=== PATIENT | female | born 1990 | race Caucasian/White ===

== ENCOUNTER 2017-06-05 06:16 | Observation (INO) | payer OTHER ==
[2017-06-05] MEDS ORDERED: LR 1,000 ML IV ONE (07:00)
[2017-06-05] MEDS ORDERED: LIDO/EPI 1% **for epidural** 30 ML SDV ONE (07:28)
[2017-06-05] MEDS ORDERED: BACITRACIN ZINC 14.2 GM OINTTUBE TP ONE (07:28)
[2017-06-05] MEDS ORDERED: LIDOCAINE 1% 300 MG/30 ML SDV ONE (07:29)
[2017-06-05] MEDS ORDERED: DEXAMETHASONE 4 MG/ML VIAL IVP ONE (07:31)
[2017-06-05] MEDS ORDERED: ceFAZolin 2 GM/SWFI 2 GM/20 ML SYR IVP ONE (07:31)
[2017-06-05] MEDS ORDERED: SCOPOLAMINE HYDROBROMIDE 1 MG/3 DAYS PATCH TD ONE (07:34)
--- NOTE | 2017-06-05 07:35 | PDHPUP ---
History & Physical Update H&P update statement: This history and physical update is based on an assessment of the patient which was completed after admission or registration (within 24 hours), but prior to the surgery/procedure.
[2017-06-05] MEDS ORDERED: fentaNYL 100 MCG/2 ML INJ ONE ×3 (07:41→10:37)
[2017-06-05] MEDS ORDERED: PROPOFOL/EMULSION 500 MG/50 ML BOTTLE IV ONE ×2 (07:41→08:33)
[2017-06-05] MEDS ORDERED: LIDOCAINE 2% 5 ML SDV ONE (08:09)
[2017-06-05] MEDS ORDERED: RANITIDINE 50 MG/2 ML VIAL ONE (08:09)
[2017-06-05] MEDS ORDERED: ONDANSETRON 4 MG/2 ML VIAL ONE (08:09)
[2017-06-05] MEDS ORDERED: METOCLOPRAMIDE 10 MG/2 ML VIAL ONE (08:09)
[2017-06-05] MEDS ORDERED: DEXAMETHASONE 4 MG/ML VIAL ONE (08:09)
[2017-06-05] MEDS ORDERED: SUGAMMADEX SODIUM 200 MG/2 ML VIAL IVP ONE (08:09)
[2017-06-05] MEDS ORDERED: ROCURONIUM 50 MG/5 ML VIAL ONE (08:09)
[2017-06-05] MEDS ORDERED: DEXMEDETOMIDINE/NS 4MCG/ML 50 ML BTL IV ONE (08:35)
--- NOTE | 2017-06-05 08:42 | PDANEPAE ---
ANE Past Medical History - Cardiovascular History Hx Hypertension: No Hx Arrhythmias: No Hx Chest Pain: No Hx Coronary Artery / Peripheral Vascular Disease: No Hx CHF / Valvular Disease: No Hx Palpitations: No Cardiovascular History Comment: Factor V Leiden- dx over 5 yrs ago. 05-16-17 Appt w/hematol- Dr grayson Hay. - Pulmonary History Hx COPD: No Hx Asthma/Reactive Airway Disease: No Hx Recent Upper Respiratory Infection: No Hx Oxygen in Use at Home: No Hx Sleep Apnea: No Sleep Apnea Screening Result - Last Documented: Negative - Neurologic History Hx Cerebrovascular Accident: No Hx Seizures: No Hx Dementia: No - Endocrine History Hx Diabetes: No - Renal History Hx Renal Disorders: No - Liver History Hx Hepatic Disorders: No - Neurological & Psychiatric Hx Hx Neurological and Psychiatric Disorders: No - Cancer History Hx Cancer: No - Congenital Disorder History Hx Congenital Disorders: No - GI History Hx Gastrointestinal Disorders: Yes Gastrointestinal History Comment: dairy and gluten-free diet;. heartburn - Other Health History Other Health History: Mass inside parotid gland-Left. uses Differin for acne - Chronic Pain History Chronic Pain: No - Surgical History Prior Surgeries: wisdom teeth extraction w/sedation ANE Review of Systems Review of Systems: - Exercise capacity METS (RN): 5 METS ANE Patient History - Allergies Allergies/Adverse Reactions: gluten Allergy (Verified 06/05/17 06:44) Unknown Milk Containing Products [dairy] Allergy (Verified 06/05/17 06:44) Unknown - Home Medications Home Medications: Adapalene [Differin gel] 1 mauri TP HS 05/06/17 [Last Taken 06/04/17] Multivitamins [Multivitamin (*)] 1 each PO DAILY 05/06/17 [Last Taken 06/04/17] Ranitidine HCl [Zantac 75] 75 mg PO DAILY PRN 05/06/17 [Last Taken 05/29/17] - NPO status NPO Since - Liquids (Date): 06/04/17 NPO Since - Liquids (Time): 21:00 NPO Since - Solids (Date): 06/04/17 NPO Since - Solids (Time): 21:00 - Smoking Hx Smoking Status: Never smoked ANE Labs/Vital Signs - Vital Signs Blood Pressure: 125/88 Heart Rate: 99 Respiratory Rate: 16 O2 Sat (%): 98 Height: 160.02 cm Weight: 49.895 kg ANE Physical Exam - Airway Neck exam: FROM Mallampati Score: Class 1 Mouth exam: normal dental/mouth exam - Pulmonary Pulmonary: no respiratory distress, no rales or rhonchi, clear to auscultation - Cardiovascular Cardiovascular: regular rate and rhythym, no murmur, rub, or gallop - ASA Status ASA Status: II ANE Anesthesia Plan Anesthesia Plan: general endotracheal anesthesia Total IV Anesthesia: Yes
[2017-06-05] MEDS ORDERED: NALOXONE HCL 0.4 MG/ML INJ IVP PRN (08:47)
[2017-06-05] MEDS ORDERED: ACETAMINOPHEN 500 MG TAB PO PRN (08:54)
[2017-06-05] MEDS ORDERED: HYDROCODONE/APAP 5/325 TAB PO PRN (08:54)
[2017-06-05] MEDS ORDERED: METOCLOPRAMIDE 10 MG/2 ML VIAL IVP PRN (08:54)
[2017-06-05] MEDS ORDERED: DIAZEPAM 10 MG/2 ML SYR IVP PRN (08:54)
[2017-06-05] MEDS ORDERED: ONDANSETRON 4 MG/2 ML VIAL IVP PRN ×2 (08:54→09:52)
[2017-06-05] MEDS ORDERED: OXYCODONE/APAP 5/325 TAB PO PRN ×2 (08:54→09:52)
[2017-06-05] MEDS ORDERED: ALBUTEROL 3 ML DEYVIAL IH PRN (08:54)
[2017-06-05] MEDS ORDERED: LR 500 ML IV PRN (08:54)
[2017-06-05] MEDS ORDERED: PROMETHAZINE HCL 25 MG/ML INJ IVP PRN (08:54)
[2017-06-05] MEDS ORDERED: MEPERIDINE 25 MG/ML SYR IVP PRN (08:54)
[2017-06-05] MEDS ORDERED: fentaNYL 100 MCG/2 ML INJ IVP PRN (08:54)
[2017-06-05] MEDS ORDERED: DEXAMETHASONE 4 MG/ML VIAL IVP PRN (08:54)
[2017-06-05] MEDS ORDERED: HYDROCOD/APAP 7.5/325 IN 15ML UDCUP PO PRN (09:52)
--- NOTE | 2017-06-05 09:52 | POSTOPPROG ---
Post Op Note Date of Operation: 06/05/17 Surgeon: Ca Gorman Ware[employer] Examiner: Dr Bruce Cameron Anesthesiologist: Mohini Anesthesia: GET(General Endotracheal) Pre-op Diagnosis: left parotid mass Post-op Diagnosis: same Procedure: left partotidectomy Findings: left parotid mass Inf/Abcess present in the surg proc area at time of surgery?: No Depth: Deep Incisional (Fascial) EBL: 50-100 Total fluids administered: 500 Complications: none Drains: Hemovac
[2017-06-05] MEDS ORDERED: D5W 1/2 NS W/ 20 KCl/L 1,000 ML IV SCH (10:00)
--- NOTE | 2017-06-05 10:46 | POSTANESTH ---
Post Anesthetic Evaluation Cardiovascular Status: Normal, Stable Respiratory Status: Normal, Stable Level of Consciousness/Mental Status: Can Participate in Eval, Mildly Sleepy, Arousable Pain Control: Adequate, Prn Tx Ordered Nausea/Vomiting Control: Adequate, Prn Tx Ordered Complications Possibly Related to Anesthesia: None Noted
--- NOTE | 2017-06-05 13:48 | GOP ---
[f rep st] OPERATIVE REPORT DATE OF OPERATION: 06/05/2017 SURGEON: Jerry Gorman MD [employer] MACHINE OPERATOR: Bruce Cameron MD ANESTHESIA: General endotracheal. PREOPERATIVE DIAGNOSIS: Left parotid mass. POSTOPERATIVE DIAGNOSIS: Left parotid mass. PROCEDURE PERFORMED: Left superficial parotidectomy with facial nerve dissection and preservation. FINDINGS: Left parotid mass widely dissected with facial nerve dissection and preservation. ESTIMATED BLOOD LOSS: 50 mL. DESCRIPTION OF PROCEDURE: Patient was placed on the operating table in supine position. After induction of adequate general endotracheal anesthesia, a shoulder roll was placed beneath the shoulders to extend the neck. The patient' s head was turned toward the right exposing the entire left side of the face. The entire left face was then prepped and draped in the standard manner for parotidectomy. Prior to draping, infiltration of the proposed incision site was performed utilizing 1% lidocaine with 1:200,000 parts epinephrine. Once the sterile prep and drape had been completed, an incision was then created passing in the preauricular region superiorly, then passing posterior to the tragus and then anterior to the lobule and then passing in a curvilinear manner inferior to the auricle. The incision was then carried down through the subcutaneous tissues. A flap was then elevated anteriorly in a plane just superficial to the SMAS. Dissection was then performed reflecting the parotid tissue off the sternocleidomastoid. Further dissection was then performed in the preauricular region widely exposing the normal course of the facial nerve. Once the styloid process had been reached during this dissection, blunt and sharp dissection was performed and hemostasis was obtained utilizing the bipolar electrocautery. Once the styloid had been reached, the stimulator was used to identify the facial nerve which then was formally identified and dissected free of parotid tissue. Dissection then proceeded from proximally to distally. The pes anserinus was then encountered. The parotid tissue overlying the facial nerve was treated with the bipolar electrocautery and then sharply divided. It was noted that the nerve branched into a superior and inferior branch. The inferior branch passed well inferior to the mass. Further dissection of the inferior branches revealed that as they passed further cephalad they passed deep to the parotid mass. The parotid tissue overlying the facial nerve branches was treated with the bipolar electrocautery and then sharply divided. The superior branches were then dissected from proximal to distal. Again, throughout this dissection, the parotid tissues were treated with bipolar electrocautery and then sharply divided. Sequential dissection of the superior branches was performed reflecting the parotid tissue including the mass laterally off the nerve. After the mass had been dissected, taking a wide margin of normal-appearing parotid tissue,the surrounding the facial nerve branches underlying were dissected and preserved. The parotid mass, with a wide margin of normal appearing parotid tissue was then delivered. The wound was then irrigated with warm saline. A few small bleeders were treated with the bipolar electrocautery. Stimulation of the nerve at 0.5 milliamps was performed. Excellent movement of all facial musculature occurred. At this point, a 10- Dominican Clint-Fuentes drain was passed inferior to the lobule into the neck, it was sutured into place with a single 3-0 silk suture. The skin flap was then placed into it's original position overlying the parotid bed and a deep layer closure of the wound was then performed utilizing interrupted 3-0 Vicryl sutures. The skin in the post tragal region was closed with 6-0 rapid absorbing gut as was the skin in the superior aspect of the preauricular wound. The skin inferior to the tragus and in the postauricular region was closed with a 5-0 Prolene placed in a simple fashion. The postauricular portion was closed with a running locked 5-0 Prolene suture. At this point, the wound was cleansed and bacitracin was applied. A sterile pressure dressing was then applied. The patient was transferred to postanesthesia recovery in stable condition. FLUIDS REPLACED: 500 mL. COMPLICATIONS: None. /[id number]/MODL MTDD
--- NOTE | 2017-06-05 17:20 | SOAPPROG ---
SOAP Progress Note Assessment/Plan: Assessment/P 26 year old female s/p left parotidectomy for parotid mass by Dr. Gorman . She was admitted for observation. She is doing well. Pain controlled, no issues swallowing/breathing. Vital signs stable. Good facial movement, KEM drain minimal. Plans for discharge tomorrow. Objective: Vital Signs Temp Pulse Resp BP Pulse Ox 36.6 C 65 20 101/68 100 06/05/17 16:25 06/05/17 16:25 06/05/17 16:25 06/05/17 16:25 06/05/17 16:25 06/04/17 06/05/17 06/06/17 05:59 05:59 05:59 Intake Total 1550 Output Total 10 Balance 1540 ICD10 Worksheet Patient Problems: Problems Problem Status Onset Parotid mass Acute - ICD10 Problem Qualifiers (1) Parotid mass
[2017-06-05 19:27] VITALS: RESP 16
[2017-06-05 23:20] VITALS: O2SAT 97
[2017-06-06 05:04] VITALS: TEMP 98.2
[2017-06-06 07:29] VITALS: BP 109/68; PULSE 60
--- NOTE | 2017-06-06 11:01 | PDDCSUM ---
Discharge Summary Discharge Summary: Subjective: This 26 year old female is POD #1 s/p left parotidectomy for left parotid mass. She was admitted for observation on 06/05/17. She is doing well. Denies pain, eating and drinking well. Objective: Vital signs stable. KEM drain 35 mL total. She is alert, oriented. Breathing well. Facial nerve intact. Left parotidectomy incision clean, dry, intact. Minimal swelling, no erythema. Assesment/Plan: 26 year old female is POD #1 s/p left parotidectomy for left parotid mass. Doing well. Her KEM drain was removed, dressing replaced. She will remove dressing tomorrow. Plans for discharge with follow up in 1 week for suture removal in clinic.
--- NOTE | 2017-06-06 17:56 | ASDISCHSUM ---
Discharge Information Plan Status:Home with No Needs Medically Cleared to Leave: Discharge Date:06/06/2017 11:25 AM CM D/C Disposition:Home, Routine, Self-Care ADT D/C Disposition:Home, Routine, Self-Care Projected Discharge Date:06/06/2017 11:25 AM Transportation at D/C: Discharge Delay Reason: Follow-Up Date:06/06/2017 11:25 AM Discharge Slot: Final Diagnosis: Placement Information Patient Contact Information Contact Name:ANDCHRISTADEBBY Relationship:Father Address: Work Phone: City: [facility] Phone: State/Zip Code: Email: Financial Information Financial Class:HMO and PPO Plans Primary Plan Desc:[employer] Primary Plan Number:[id number] Secondary Plan Desc: Secondary Plan Number: Assessment Information Intervention Information
== END 2017-06-06 11:25 | disposition home or self-care (01) ==
LOC: F3E 06:16
PROVIDERS: ADMIT Otolaryngology; ATTEND Otolaryngology
PROC: 0CB90ZZ Excision of Left Parotid Gland, Open Approach (ICD-10-PCS; principal; 2017-06-05 07:45)
DX: D11.0 Benign neoplasm of parotid gland (principal)
CPT/HCPCS: 42415; G0378; J0171; J0690; J1100; J2405; J2704; J2765; J2780; J3010